=== PATIENT | female | born 1945 | race Caucasian/White ===

== ENCOUNTER 2017-04-08 05:35 | Inpatient (IN) | payer BC ==
--- NOTE | 2017-03-30 21:59 | HP ---
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 She has had this pain for about 3 years and has gotten worse over time. She feels like she is locking in her low back when rolling over in bed. She is very tender over the right SI joint and right greater trochanteric bursitis . She has had burning in the right thigh for over a year and the pain is made worse with walking and lying down. The pain in her low back is somewhat better with traction and physical therapy and application of heat. She has had [address] Connelly and has had 8 weeks of physical therapy that did not relieve her pain significantly. MRI and lumbar spine on CD. REVIEW OF SYSTEMS: A ten-point review of systems completed, is otherwise negative unless stated in the above HPI. PAST MEDICAL HISTORY: Low back pain, thyroid problems. PAST SURGICAL HISTORY: Collarbone surgery in 2004, neck surgery in 2000. HOSPITALIZATIONS: For surgeries only. FAMILY HISTORY: Father is , diagnosed with cancer and stroke. Mother is , diagnosed with hypertension, heart disease, cancer. Siblings are alive, diagnosed with hypertension. SOCIAL HISTORY: The patient is a nonsmoker. 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 MEDICATIONS: 1. Byers Thyroid 60 mg tablet 1 tablet on an empty stomach orally once a day. 2. Vitamin B12 1000 mcg tablet 1 tablet orally once a day. 3. Taking magnesium as directed. 4. Calcium 1 tablet oral, taking vitamin C. 5. Vitamin B complex. 6. Biotin. 7. Kelp 0.15 mg tablet 1 tablet orally once a day. ALLERGIES: No known drug allergies. PHYSICAL EXAMINATION: HEENT: Normocephalic, atraumatic. Hearing intact. Moist mucous membranes. Trachea midline. EYES: Pupils are equal and reactive to light. Extraocular muscles are intact. Sclerae are white, anicteric. PSYCHIATRIC: Normal mood and affect. CARDIOVASCULAR/CARDIOPULMONARY: No cyanosis or clubbing noted. Intact pedal pulses bilaterally. MUSCULOSKELETAL: Lower extremity 5/5 strength in bilateral iliopsoas, quadriceps, hamstrings, right tibialis anterior, extensor hallucis longus. Sensory deficits in the right L5 dermatome, tender to palpation in the midline lumbar spine and over the right SI and greater trochanteric bursa. RESPIRATORY: The patient has bilateral symmetric chest rise, appears to be in no shortness of breath. NEUROLOGIC: Cranial nerves II through XII are grossly intact. Speech is fluent. She answers my questions appropriately. She has antalgic gait and station. ASSESSMENT: 1. Lumbar radiculopathy. 2. Lumbago with sciatica of the right side. 3. Spondylolisthesis at L4-L5. PLAN: Dr. Smith offered the patient surgery including an L4-L5 laminectomy and TLIF. She has tried conservative therapy such as physical therapy, injections, and stretching of the IT band and it has not resolved her pain. We discussed the risks, benefits, alternatives, and expected results from surgery. The patient fully understands the risks and is willing to proceed with the surgery. ROMULO
[2017-04-07 13:04] VITALS: BMI 29.0
[2017-04-08] MEDS ORDERED: Thrombin 5000 UNITS/5 ML VIAL ONE (06:17)
[2017-04-08] MEDS ORDERED: Sodium Chloride 0.9% 10 ML ONE ×2 (06:17→08:47)
[2017-04-08] MEDS ORDERED: Fentanyl 250 MCG/5 ML VIAL ONE ×2 (06:18→11:30)
[2017-04-08] MEDS ORDERED: Midazolam HCl 2 mg/2 ml Vial ONE (06:18)
[2017-04-08] MEDS ORDERED: Bupivacaine/Epinephrine 0.25% 30 ML VIAL ONE (06:26)
[2017-04-08 06:42] LABS: #Eosinphils 0.2 thou/uL (0.0-0.7); #Lymphocytes 2.3 thou/uL (1.20-3.40); #Monocytes 0.7 thou/uL (0.11-0.59); #Neutrophils 3.5 thou/uL (1.40-6.50); %Basophils 0.7 % (0.0-1.0); %Eosinophils 3.2 % (0.0-10.0); %Lymphocytes 34.5 % (21.0-51.0); %Monocytes 10.3 % (0.0-10.0); Hematocrit 41.1 % (36.0-47.0); Mean Platelet Volume 8.2 fL (7.4-10.4); Red Blood Cell (RBC) Count 4.18 mill/uL (4.20-5.40); White Blood Cell (WBC) Count 6.8 thou/uL (4.8-10.8)
[2017-04-08] MEDS ORDERED: CEFAZOLIN/Water 2 GM/20 ML SYRINGE ONE (06:42)
[2017-04-08 06:44] LABS: PTT 23.9 SEC (22.9-36.1); Prothrombin Time 12.2 SEC (12.0-14.7)
[2017-04-08] MEDS ORDERED: Propofol 200 MG/20 ML VIAL ONE (07:01)
[2017-04-08] MEDS ORDERED: Esmolol 100 MG/10 ML VIAL ONE (07:01)
[2017-04-08] MEDS ORDERED: Ondansetron HCl/PF 4 MG/2 ML Vial ONE (07:01)
[2017-04-08] MEDS ORDERED: Lidocaine 1% PF 5 ML VIAL ONE (07:01)
[2017-04-08] MEDS ORDERED: Glycopyrrolate 0.2 MG/ML 5 ML SYRINGE ONE (07:01)
[2017-04-08] MEDS ORDERED: ePHEDrine/0.9% NaCl/PF SYRINGE 50 mg/10 ml ONE (07:01)
[2017-04-08] MEDS ORDERED: PHENYLEPHRINE-NS 100 MCG/ML 10 ML SYRINGE ONE (07:01)
[2017-04-08] MEDS ORDERED: Dexamethasone 20 MG/5 ML VIAL ONE (07:01)
[2017-04-08] MEDS ORDERED: Promethazine HCl 25 MG/ML VIAL SLOW IVP PRN (10:49)
[2017-04-08] MEDS ORDERED: Morphine Sulfate 2 MG/ML SYRINGE SLOW IVP PRN (10:49)
[2017-04-08] MEDS ORDERED: Meperidine HCl/PF 25 MG/ML VIAL SLOW IVP PRN (10:49)
[2017-04-08] MEDS ORDERED: HYDROmorphone 2 MG/ML VIAL SLOW IVP PRN (10:49)
[2017-04-08] MEDS ORDERED: Ondansetron HCl/PF 4 MG/2 ML Vial IVP PRN (11:15)
[2017-04-08] MEDS ORDERED: Acetaminophen/Codeine 30-300mg Tablet PO PRN (11:15)
[2017-04-08] MEDS ORDERED: Bisacodyl 10 MG SUPP PR PRN (11:15)
[2017-04-08] MEDS ORDERED: tiZANidine HCl 4 MG TAB PO PRN (11:15)
[2017-04-08] MEDS ORDERED: Morphine 4 MG/ML Carpuject SLOW IVP PRN (11:15)
[2017-04-08] MEDS ORDERED: ERGOCALCIFEROL 50000 UNIT PO SCH (11:30)
[2017-04-08] MEDS ORDERED: Morphine 4 MG/ML VIAL SLOW IVP PRN (11:39)
[2017-04-08] MEDS ORDERED: Morphine PF 1 MG/ML SYR IVP PRN (11:40)
[2017-04-08] MEDS ORDERED: Morphine 4 MG/ML VIAL ONE (11:50)
[2017-04-08] MEDS ORDERED: Ergocalciferol 1.25 MG(50,000 UNITS) CAP PO SCH (12:00)
[2017-04-08] MEDS ORDERED: Cyanocobalamin 1000 MCG/ML VIAL SC SCH (12:00)
--- NOTE | 2017-04-08 12:16 | OP ---
DATE OF PROCEDURE: 04/08/2017 SURGEON: Emery Smith M.D. [employer] OPERATOR: Ryland Ny PA-C. PREOPERATIVE INDICATION: Treat pain, prevent neurological deterioration. PREOPERATIVE DIAGNOSES: Lumbar spondylolisthesis L4-L5 with severe L4-5 spinal stenosis and neurogen ic claudication. POSTOPERATIVE DIAGNOSIS: Lumbar spondylolisthesis L4-L5 with severe L4-5 spinal stenosis and neuroge pradeep claudication. OPERATIVE PROCEDURE: Decompressive laminectomy, medial facetectomy, foraminotomy, removal of abnorma l facets, and transforaminal lumbar interbody arthrodesis at L4-L5, posterolateral arthrodesis L4-L5 and pedicle screw instrumentation L4-L5, placement of intervertebral biomechanical device L4-L5. PREOPERATIVE MEDICATION: Ancef 2 grams IV. DRAIN NUMBER: Zero. DRAIN TYPE: None. OPERATIVE DICTATION: The patient was brought to the operating room. General endotracheal anesthesia was induced. The patient was positioned prone on the Jeanmarie frame with the appropriate padding for the chest and hips. A lateral fluoro radiograph was used to plan our incision. The lumbar skin was sterilely prepped and draped. We opened with a 10 blade knife and controlled bleeding with bipolar and monopolar cautery. We used monopolar cautery to dissect through the subcutaneous tissues to the thoracodorsal fascia. We incised the fascia in the midline and reflected the paraspinal muscles off the spinous process and lamina of L4 and L5. We placed the self-retaining retractor and took a later al fluoro radiograph to confirm the levels upon which we were operating. We then widened our dissect ion. We dissected the facet joint at L3-4, and the transverse processes of L4 bilaterally. In a sim ilar fashion, we dissected over the facet joint at L4-L5 to the transverse process of L5 on both side s. We irrigated copiously with bacitracin irrigation. With an Adson rongeur, we removed the spinous process of L4 and the superior portion of L5. We fashioned the laminectomy with Kerrison rongeurs. We found that removing the very thick yellow ligament and medial facet joints at L4-5 was treacherou s as the thecal sac was firmly compressed and adherent here. We found it safer to remove the L5 lami na and approach it from inferiorly. When we performed this maneuver, the thecal sac decompressed pradeep scar safely and without dural loss or dural laceration. We performed a medial facetectomy on both joe es at L4-L5. We ensured the L4-L5 nerve roots were well decompressed. We then checked the S1 nerve roots and made sure they were well decompressed. At completion of the decompression of the neural el ements we turned our attention to arthrodesis. In order to access the intervertebral space through t he right foramen we removed the abnormal facet joint at L4-5 on the right in its entirety. After the facetectomy, we had excellent access to the intervertebral space without undue retraction of the the cesar sac. We incised the disk space and removed disk contents using curettes and rongeurs. We prepar ed the endplates for grafting using curets and a bone rasp. We measured the height of the interspace to 11 mm with a rectangular shaped bone rasp. We brought an 11 mm PEEK graft into the field. This intervertebral device was loaded with demineralized bone matrix and morselized autograft. The autogr aft had already been prepared on the back table from our laminectomy and facetectomy bone. All the b one was cleaned of its soft tissue attachments. The bone was morselized and added to demineralized b one matrix as our fusion substrate. We advanced the PEEK graft under radiographic guidance into the interspace to the appropriate depth. We turned our attention to pedicle screw instrumentation. Usin g bony anatomic landmarks, palpation of the medial portion of the pedicles, and a lateral fluoro radi ograph as a guide, we chose entry points for pedicle screws at L4 and L5 bilaterally. A 6.[address] screws were placed. We created our entry points with a high-speed drill, we probed, we used a mila ne awl to create the trajectories through the pedicles and then we tapped them. We probed the trajec tories and found them completely encased in bone. We placed pedicle screws and generated a 360 degre e image set using isocentric C-arm. This confirmed adequate position of our pedicle screws. We then irrigated copiously with bacitracin irrigation. We decorticated the transverse processes of L4 and L5 bilaterally and over the decorticated bone we left demineralized bone matrix and morselized autogr aft. We placed rods into the screw heads and tightened caps over the rods. Before tightening, we us ed gentle compression across the interspace to the keep our interbody graft in place. We tightened c aps down over the rods using [id number]-feifpt mechanism to the adequate tightness. We irrigated the center of the wound once again with bacitracin irrigation. We ensured all the nerve roots were free once again, we infused local anesthetic in the paraspinal muscles. We closed the wound in anato toni layers and we applied a sterile dressing. This was a clean case and no contamination.
[2017-04-08] MEDS: Acetaminophen/Codeine 30-300mg Tablet PO PRN ×2 (15:46→23:45)
[2017-04-08] MEDS: CEFAZOLIN/Water 2 GM/20 ML SYRINGE SLOW IVP SCH ×2 (15:47→22:48)
[2017-04-08] MEDS: Sodium Chloride 0.9% 1,000 ML IV SCH ×2 (15:58→20:24)
[2017-04-09] MEDS: Stress 600 With Zinc 1 TAB PO SCH (08:43)
[2017-04-09] MEDS: Ascorbic Acid 500 mg Chewable Tablet PO SCH (08:43)
[2017-04-09] MEDS: Magnesium Oxide 250 MG TAB PO SCH (08:44)
[2017-04-09] MEDS: Calcium Carbonate 500 MG TAB PO SCH (08:44)
[2017-04-09] MEDS: Acetaminophen/Codeine 30-300mg Tablet PO PRN ×3 (08:51→20:13)
[2017-04-09] MEDS ORDERED: VITAMIN B COMPLEX PO SCH (09:00)
[2017-04-09] MEDS ORDERED: VIT C NO 4 PO SCH (09:00)
[2017-04-09] MEDS: Sodium Chloride 0.9% 1,000 ML IV SCH (15:36)
[2017-04-10] MEDS: Ascorbic Acid 500 mg Chewable Tablet PO SCH (07:53)
[2017-04-10] MEDS: Calcium Carbonate 500 MG TAB PO SCH (07:53)
[2017-04-10] MEDS: Magnesium Oxide 250 MG TAB PO SCH (07:53)
[2017-04-10] MEDS: Stress 600 With Zinc 1 TAB PO SCH (09:14)
[2017-04-10] MEDS: Acetaminophen/Codeine 30-300mg Tablet PO PRN (10:46)
[2017-04-10 11:38] VITALS: BP 118/72; TEMP 98.5
== END 2017-04-10 11:31 | disposition home or self-care (01) | DRG 460 ==
LOC: SURG A 05:35 → SURG B 12:25
PROVIDERS: ADMIT Neurological Surgery; ATTEND Neurological Surgery
PROC: 0SG00AJ Fusion of Lumbar Vertebral Joint with Interbody Fusion Device, Posterior Approach, Anterior Column, Open Approach (ICD-10-PCS; principal; 2017-04-08)
PROC: 01NB0ZZ Release Lumbar Nerve, Open Approach (ICD-10-PCS; 2017-04-08)
DX: M43.16 Spondylolisthesis, lumbar region (principal); M54.41 Lumbago with sciatica, right side; M54.16 Radiculopathy, lumbar region; M48.062 Spinal stenosis, lumbar region with neurogenic claudication
CPT/HCPCS: 36415; 76001; 85025; 85610; 85730; A4216; C1713; C1768; G8978-GP-CK; G8979-GP-CI; J1100; J2001; J2250; J2270; J2405; J2704; J3010; J3370; J3420; J3490